=== PATIENT | male | born 1955 | race Caucasian/White ===

== ENCOUNTER 2017-03-23 11:53 | Emergency (ER) | payer BC ==
[~2017-03-23] VITALS: Ht 170.2 cm; Wt 65.8 kg
[~2017-03-23 11:53] MED LIST: AMOXICILLIN875 MG PO; NOHOMEMEDICATIONS; NORCO 5-325 TA1 EACH PO
[2017-03-23 11:54] VITALS: BP 132/71
== END 2017-03-24 15:11 | disposition home or self-care (01) ==
LOC: ER 11:53
DX: Z53.21 Procedure and treatment not carried out due to patient leaving prior to being seen by health care provider (principal)